=== PATIENT | male | born 1980 | race Two or more races ===

== ENCOUNTER → 2017-09-27 | Emergency (ER) | payer MEDICAID ==
[~2017-09-27] VITALS: Ht 167.6 cm; Wt 74.8 kg
[~2017-09-27] MED LIST: [UNRECOGNIZED DRUG - REMARK]
[2017-09-27 18:28] VITALS: BP 125/79
== END | disposition home or self-care (01) ==
LOC: ER 18:31
DX: J32.9 Chronic sinusitis, unspecified (principal)
CPT/HCPCS: 99283; A4606; Z7610

== ENCOUNTER 2018-08-23 11:32 | Emergency (ER) | END 2018-08-23 12:44 | disposition home or self-care (01) | DX: J11.1 Influenza due to unidentified influenza virus with other respiratory manifestations (principal); M79.10 Myalgia, unspecified site ==